=== PATIENT | female | born 1965 | race Caucasian/White ===

== ENCOUNTER → 2017-01-12 | Outpatient (CLI) | payer BC ==
[~2017-01-12] MED LIST: EFFEXOR XR37.5 MG PO; HYDROCODONE 5MG/5 MG PO; MULTI VITAMIN1 EACH PO; ZYRTEC-D TABLE1 EACH PO
== END | disposition home or self-care (01) ==
LOC: RAD.S 08:23
DX: R74.8 Abnormal levels of other serum enzymes (principal); K76.0 Fatty (change of) liver, not elsewhere classified; Z90.49 Acquired absence of other specified parts of digestive tract